=== PATIENT | male | born 1945 | race Caucasian/White ===

== ENCOUNTER → 2017-09-13 | Outpatient (CLI) | payer OTHER ==
[~2017-09-13] MED LIST: LEXISCAN IV ONE
--- NOTE | 2017-09-13 11:41 | VAS ---
HISTORY: Carotid bruit and CVA. Comparison: No recent priors. Technique/exam: Doppler carotid, bilateral, ultrasound examination. Grayscale and Doppler images of the carotid arteries were obtained bilaterally. 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 This can be better assessed with CT angiographic imaging of the n kylie vasculature. There is also moderate right CCA and ICA atherosclerosis without evidence for incre ased velocity in the right CCA are right ICA. Additionally, the right vertebral artery is not well s een which could be secondary to chronic occlusion or technical factors. There is antegrade flow seen the left vertebral artery. Impression: 1. Complete occlusion of the left ICA which could be chronic or secondary to an acute thrombus; this can be better assessed with CT angiographic imaging of the neck. 2. The right vertebral artery is not well seen which could be secondary to chronic occlusion or tech nical factors. Appropriate flow seen within the left vertebral artery. 3. No additional high-grade stenosis or occlusion seen. Right-sided CCA and ICA atherosclerosis and calcification which is moderate in severity in this patient. Reported By:
== END | disposition home or self-care (01) | DRG 314 ==
LOC: RAD 09:33 → EDBD 10:00
PROVIDERS: ATTEND Internal Medicine
DX: R09.89 Other specified symptoms and signs involving the circulatory and respiratory systems (principal); I63.8 Other cerebral infarction; I65.22 Occlusion and stenosis of left carotid artery
CPT/HCPCS: 93880; J2785